=== PATIENT | male | born 1960 | race Asian ===

== ENCOUNTER 2023-10-15 16:00 | Emergency (ER) | payer OTHER, MEDICAID ==
[~2023-10-15] VITALS: Ht 167.6 cm; Wt 72.7 kg
[2023-10-15 16:29] VITALS: BP 121/76; PULSE 66; RESP 18; TEMP 98.1
== END 2023-10-15 18:22 | disposition left against medical advice (07) ==
LOC: EMS 16:02
DX: R07.81 Pleurodynia (principal); Z53.21 Procedure and treatment not carried out due to patient leaving prior to being seen by health care provider